=== PATIENT | male | born 1945 | race Caucasian/White ===

== ENCOUNTER 2017-01-21 23:08 | Observation (INO) | payer OTHER ==
[~2017-01-21] VITALS: Ht 172.7 cm; Wt 89.8 kg
--- NOTE | ~2017-01-21 | H ---
[facility] [place] [address] HISTORY AND PHYSICAL Name: NAHED AVALOS Room #: 205-P [facility] Lui Waller#: [id number] Admission: 01/21/17 Attend Phys: Claudio Marcial Discharge: 01/22/17 Date of : 43 Report #: [id number] THIS REPORT FOR: //name// CC: Claudio Green DATE OF SERVICE: 01/21/2017 ATTENDING PHYSICIAN: Claudio Marcial M.D. PRIMARY CARE PHYSICIAN: Kali Green M.D. CHIEF COMPLAINT: Chest pain. HISTORY OF PRESENT ILLNESS: The patient is a 71-year-old male who does have a history of mild coronary artery disease. He does not have any stents, but he has had a prior abnormal stress test in 2014, for which he underwent a heart catheterization, which showed a few 40% lesions, and it was recommended at the time to just work on risk factor modification. He had been doing well up until yesterday morning, he developed some chest pressure and burning in his mid chest. He did have some radiation of this discomfort into his neck and jaw and left shoulder. The pain has been on and off since onset. He did have some associated lightheadedness, but no shortness of breath, nausea, vomiting or diaphoresis. He was actually scheduled to have a nuclear stress test later on this week by his manager agriculture, Dr. Han. For this current pain, he ended up in the ER at [facility] in [place]. He was given nitroglycerin there once, which seemed to help the pain, and because his manager agriculture is here, he was transferred to [facility] as a direct admission. He is currently resting comfortably. He says there is a very slight pressure in the mid chest, which he would rate 1/10. He does have chronic atrial fibrillation for which he is on Pradaxa. PAST MEDICAL HISTORY: Mild coronary artery disease, chronic atrial fibrillation, hypertension, diabetes, hyperlipidemia, obstructive sleep apnea, constipation and GERD. PAST SURGICAL HISTORY: Bilateral cataract repair, rotator cuff repair, hernia repair and T and A. ALLERGIES: PENICILLIN. HOME MEDICATIONS: Pradaxa 150 mg b.i.d., amiodarone 200 mg daily, pravastatin 20 mg daily, amlodipine 5 mg daily, aspirin 81 mg daily, metformin 1000 mg b.i.d., Levemir insulin 24 units at bedtime and Humalog insulin sliding scale. SOCIAL HISTORY: The patient is . He is an ex-[place], [place] [address] HISTORY AND PHYSICAL Name: NAHED AVALOS Room #: 205-P [facility] Lui MShmuelRShmuel#: [id number] Admission: 01/21/17 Attend Phys: Claudio Marcial Discharge: 01/22/17 Date of : 43 Report #: [id number] 1985 after smoking 1 pack per day for 25 years. He drinks a few beers per week. Denies any drug use. He is a retired attorney lawyer. FAMILY HISTORY: Negative for any coronary artery disease. Both his parents at late ages from natural causes. REVIEW OF SYSTEMS: A 12-point review of systems was reviewed with the patient; otherwise, negative unless stated in the HPI. PHYSICAL EXAMINATION: GENERAL: The patient is an alert and pleasant male, in no acute distress. VITAL SIGNS: Temperature is 36.8, heart rate 59, respirations 18, blood pressure is 133/91 and oxygen 96% on room air. HEENT: PERRLA. Sclerae are nonicteric. Oral mucosa is pink and moist. NECK: Supple, no JVD noted. CARDIOVASCULAR: Normal S1 and S2. No murmurs, rubs or gallops. RESPIRATORY: Breath sounds are clear bilaterally. His breathing is nonlabored. ABDOMEN: Soft, nontender and nondistended with positive bowel sounds. VASCULAR: No edema noted. Pedal pulses are 2+. NEUROLOGIC: The patient is alert and oriented x 3. Speech is clear. He is moving all extremities equally. No focal neuro deficits noted. SKIN: Intact. No rashes or lesions. LABORATORY AND DIAGNOSTIC DATA: WBC is 8.6, hemoglobin 12.8 and platelets 315. Sodium 137, potassium 4.0, BUN 23 and creatinine 1.0. Glucose 139. Troponins negative. Lipase is 184. INR 1.6. EKG showing sinus rhythm with a first-degree block. ASSESSMENT AND PLAN: 1. Chest pain. The patient was scheduled for a nuclear stress test later this week. So for, his troponins have been negative. We will check 2 more sets of enzymes. We will consult Cardiology for further recommendations, he may need to have his stress test moved to today. 2. Hypertension. Blood pressure is stable. Resume home meds. 3. Diabetes type 2. Blood sugar is stable. Continue Levemir tonight and add sliding scale insulin. 4. Chronic atrial fibrillation. He is currently rate controlled. He is in a sinus rhythm with first-degree block. We will continue with Pradaxa for anticoagulation and amiodarone for rate control. 5. Hyperlipidemia. Check a lipid panel. Continue statin therapy. 6. Obstructive sleep apnea. The patient does not have his home CPAP, use oxygen p.r.n. 7. Deep vein thrombosis prophylaxis. Continue with Pradaxa. [facility] [address] [place] [address] HISTORY AND PHYSICAL Name: NAHED AVALOS Room #: 205-P [facility] Lui Waller#: [id number] Admission: 01/21/17 Attend Phys: Claudio Marcial Discharge: 01/22/17 Date of : 43 Report #: [id number] We will continue to follow the patient closely throughout the hospitalization and make changes based on clinical status. <ELECTRONICALLY SIGNED> By: SERGIO Salazar 01/23/17 0608 0634 0805 SERGIO Salazar /nt
--- NOTE | ~2017-01-21 | EKG ---
[address] [address] ELECTROCARDIOGRAM REPORT Name: NAHED AVALOS Room #: 205-[facility]..#: [id number] Admission: 01/21/17 Attend Phys: Claudio Marcial Discharge: Date of : 43 Report #: [id number] THIS REPORT FOR: //name// [facility] Test Date: 2017-01-22 Test Time: 01:29:03 Pat Name: NAHED AVALOS Department: Room: 205 Gender: M Armed Guard: charissa : 1945 Requested By: Karley Miramontes Order Number: [id number] MD: Barry Lkue Measurements Intervals [place] Rate: 53 P: 63 UT: 229 QRS: -27 QRSD: 117 T: 42 QT: 498 QTc: 468 Interpretive Statements Sinus rhythm Prolonged UT interval Right ventricular conduction delay No previous ECG available for comparison Electronically Signed On 01-22-2017 8:37:32 CDT by Barry Luke [email or web address] <ELECTRONICALLY SIGNED> By: Barry Luke MD, [facility] 01/22/17 0837 0129 8 Barry Luke MD, FACC /EPI
--- NOTE | ~2017-01-21 | EKG ---
[place] [address] [facility] [address] ELECTROCARDIOGRAM REPORT Name: NAHED AVALOS Room #: 205-[facility]..#: [id number] Admission: 01/21/17 Attend Phys: Claudio Marcial Discharge: Date of : 43 Report #: [id number] THIS REPORT FOR: //name// [facility] Test Date: 2017-01-22 Test Time: 06:42:33 Pat Name: NAHED AVALOS Department: Room: 205 Gender: M Registered Nurse Surgical Services: roberta : 1945 Requested By: Karley Miramontes Order Number: [id number] MD: Barry Luke Measurements Intervals [place] Rate: 51 P: -8 NH: 225 QRS: -37 QRSD: 121 T: 27 QT: 471 QTc: 434 Interpretive Statements Sinus rhythm Prolonged NH interval Nonspecific IVCD with LAD No previous ECG available for comparison Electronically Signed On 01-22-2017 8:41:22 CDT by aBrry Luke [email or web address] <ELECTRONICALLY SIGNED> By: Barry Luke MD, [facility] 01/22/17 0841 0642 1 Barry Luke MD, FACC /EPI
[~2017-01-21 23:08] MED LIST: ASPIRIN EC81 M1 PO; ASPIRIN81 M2 PO; ATENOLOL 50MG T50 MG PO; BENICAR40 MG PO; GLUCOPHAGE1000 MG PO; GLUCOPHAGE500 MG PO; LEVEMIR SUBQ; LIVALO2 MG PO; NORVASC 5 MG TAB5 MG PO; NOVOLOG100 UNIT/1 SQ; PACERONE 200 M200 M1 PO; PRADAXA150 MG PO; PRAVACHOL20 MG PO
[2017-01-21 23:57] VITALS: BP 133/91
[2017-01-22 04:00] VITALS: BP 129/66
[2017-01-22 08:10] VITALS: BP 121/78
[2017-01-22 09:33] LABS: CHOLESTEROL 112 mg/dL (<200); HDL CHOLESTEROL 53 mg/dL (>40); LDL CHOLESTEROL 42 mg/dL (<100); TC:HDL 2.1 Ratio (Not establshd); TRIGLYCERIDE 85 mg/dL (<150); VLDL 17 mg/dL (<40)
[2017-01-22 14:10] VITALS: BP 117/75
[2017-01-22 16:51] VITALS: BP 117/75
[2017-01-22 17:29] VITALS: BP 117/75
== END 2017-01-22 17:33 | disposition home or self-care (01) ==
LOC: 2N 23:08
PROVIDERS: Nurse Practitioner Acute Care
DX: I25.10 Atherosclerotic heart disease of native coronary artery without angina pectoris (principal); I48.2 Chronic atrial fibrillation; I10 Essential (primary) hypertension; E78.5 Hyperlipidemia, unspecified; G47.33 Obstructive sleep apnea (adult) (pediatric); K21.9 Gastro-esophageal reflux disease without esophagitis; K59.00 Constipation, unspecified; E11.9 Type 2 diabetes mellitus without complications; I82.499 Acute embolism and thrombosis of other specified deep vein of unspecified lower extremity; F10.21 Alcohol dependence, in remission; Z87.891 Personal history of nicotine dependence

== ENCOUNTER → 2019-01-02 | Outpatient (CLI) | payer OTHER ==
[2019-01-02 07:36] LABS: CREATININE 0.9 mg/dL (0.7-1.3)
== END ==
LOC: CAT 06:58
PROVIDERS: Internal Medicine Cardiovascular Disease
DX: K86.89 Other specified diseases of pancreas (principal); I70.0 Atherosclerosis of aorta; M47.815 Spondylosis without myelopathy or radiculopathy, thoracolumbar region

== ENCOUNTER → 2020-01-07 | Outpatient (CLI) | payer OTHER | LOC: SJCVC 13:55 → SJCVCIMAG 13:55 | DX: R94.31 Abnormal electrocardiogram [ECG] [EKG] (principal); I11.9 Hypertensive heart disease without heart failure; I34.0 Nonrheumatic mitral (valve) insufficiency; I48.0 Paroxysmal atrial fibrillation; I25.10 Atherosclerotic heart disease of native coronary artery without angina pectoris; E11.9 Type 2 diabetes mellitus without complications; E78.00 Pure hypercholesterolemia, unspecified; I63.9 Cerebral infarction, unspecified; Z95.5 Presence of coronary angioplasty implant and graft; Z79.4 Long term (current) use of insulin; Z79.899 Other long term (current) drug therapy; Z87.891 Personal history of nicotine dependence ==

== ENCOUNTER → 2020-01-29 | Outpatient (CLI) | payer OTHER | LOC: SJCVC 11:17 → SJCVCIMAG 11:17 | DX: R94.31 Abnormal electrocardiogram [ECG] [EKG] (principal); E89.0 Postprocedural hypothyroidism; E04.8 Other specified nontoxic goiter; I65.23 Occlusion and stenosis of bilateral carotid arteries; R55 Syncope and collapse; E11.9 Type 2 diabetes mellitus without complications; I48.0 Paroxysmal atrial fibrillation; I63.9 Cerebral infarction, unspecified; I63.211 Cerebral infarction due to unspecified occlusion or stenosis of right vertebral artery; I63.22 Cerebral infarction due to unspecified occlusion or stenosis of basilar artery; I25.10 Atherosclerotic heart disease of native coronary artery without angina pectoris; R09.89 Other specified symptoms and signs involving the circulatory and respiratory systems; Z79.4 Long term (current) use of insulin ==

== ENCOUNTER → 2020-04-27 | Outpatient (CLI) | payer OTHER | LOC: SJCVCIMAG 12:46 | PROVIDERS: ATTEND Internal Medicine Cardiovascular Disease | DX: I48.0 Paroxysmal atrial fibrillation (principal); R00.0 Tachycardia, unspecified; I25.10 Atherosclerotic heart disease of native coronary artery without angina pectoris; Z79.899 Other long term (current) drug therapy; Z87.891 Personal history of nicotine dependence ==

== ENCOUNTER → 2020-06-09 | Outpatient (CLI) | payer OTHER | LOC: SJCVC 13:08 | PROVIDERS: ATTEND Internal Medicine Cardiovascular Disease | DX: R94.31 Abnormal electrocardiogram [ECG] [EKG] (principal); I48.91 Unspecified atrial fibrillation; I63.9 Cerebral infarction, unspecified; I63.211 Cerebral infarction due to unspecified occlusion or stenosis of right vertebral artery; I63.22 Cerebral infarction due to unspecified occlusion or stenosis of basilar artery; I25.10 Atherosclerotic heart disease of native coronary artery without angina pectoris; R09.89 Other specified symptoms and signs involving the circulatory and respiratory systems; I49.5 Sick sinus syndrome ==

== ENCOUNTER 2020-12-28 11:18 | Inpatient (IN) | payer OTHER ==
[~2020-12-28] VITALS: Ht 172.7 cm; Wt 89.8 kg
[2020-12-28 11:28] VITALS: BP 112/67
[2020-12-28 12:01] LABS: ABSOLUTE NEUTROPHILS 7.8 thou/uL (1.4-8.2); BASOPHILS 0.6 % (0.0-2.0); EOSINOPHILS 2.6 % (0.0-3.0); HEMATOCRIT 39.9 % (42.0-52.0); HEMOGLOBIN 13.4 gm/dL (14.0-18.0); LYMPHOCYTES 13.6 % (24.0-44.0); MCH 29.8 pg (26.0-34.0); MCHC 33.5 g/dL (28.0-37.0); MONOCYTES 5.4 % (1.0-8.0); PLATELET COUNT 293 thou/uL (150-400); POLYS 77.8 % (36.0-66.0); RBC 4.48 mil/uL (4.50-6.00); RDW 14.5 % (10.5-14.5)
[2020-12-28 12:15] LABS: APTT 42.4 Seconds (24.5-32.8); INR 1.5; PROTIME 16.3 Seconds (9.3-11.4)
[2020-12-28 12:16] LABS: ANION GAP 10 mmol/L (7-16); BUN 18 mg/dL (7-18); CALCIUM 8.8 mg/dL (8.5-10.1); CHLORIDE 95 mmol/L (98-107); CO2 22 mmol/L (21-32); GLUCOSE 139 mg/dL (74-106); POTASSIUM 4.2 mmol/L (3.5-5.1); SODIUM 127 mmol/L (136-145)
[2020-12-28 12:27] LABS: ALBUMIN 4.2 g/dL (3.4-5.0); SGOT 27 U/L (15-37); SGPT 34 U/L (16-63); TOTAL BILIRUBIN 0.5 mg/dL (0.2-1.0); TROPONIN-I <0.06 ng/mL (<0.06)
[2020-12-28 13:53] VITALS: BP 122/55
[2020-12-28 14:13] VITALS: BP 116/74
[2020-12-28 15:02] LABS: FOLIC ACID 15.6 ng/mL (8.6-58.9)
[2020-12-28 15:07] VITALS: BP 108/63
--- NOTE | 2020-12-28 15:38 | EKG ---
[address] [place] [address] ELECTROCARDIOGRAM REPORT Name: ROBBIENAHED Room #: 203-P ADM IN M.R.#: [id number] Admission: 12/28/20 Attend Phys: James Rashid MD Discharge: Date of : 43 Report #: [id number] [facility] ED Test Date: 2020-12-28 Test Time: 12:03:51 Pat Name: NAHED AVALOS Department: Room: [facility] Gender: M Orthotics Technician: GALILEO : 1945 Requested By: Morgan Vidal Order Number: [id number] MD: Ronaldo Carbajal Measurements Intervals [place] Rate: 95 P: [place]: QRS: -14 QRSD: 84 T: 44 QT: 373 QTc: 469 Interpretive Statements Atrial fibrillation Compared to ECG 01/22/2017 06:42:33 Sinus rhythm no longer present First degree AV block no longer present Intraventricular conduction delay no longer present Electronically Signed On 12-28-2020 15:38:26 CDT by Ronaldo Carbajal [email or web address] <ELECTRONICALLY SIGNED> By: Ronaldo Carbajal MD, [facility] 12/28/20 1538 1203 1203 Ronaldo Carbajal MD, FACC /EPI
[2020-12-28] MEDS ORDERED: TYLENOL325 M1 PO (15:54)
[2020-12-28] MEDS ORDERED: DILTIAZEM 24HR240 M1 PO (15:55)
[2020-12-28] MEDS ORDERED: DULCOLAX STOOL100 M1 PO (15:56)
[2020-12-28] MEDS ORDERED: NOVOLOG100 UNIT/1 (15:58)
[2020-12-28] MEDS ORDERED: LEVEMIR100 UNIT/1 SUBQ (15:59)
[2020-12-28] MEDS ORDERED: PRAVACHOL40 MG PO (16:00)
[2020-12-28] MEDS ORDERED: XARELTO20 MG PO (16:01)
[2020-12-28] MEDS ORDERED: MELOXICAM15 MG PO (16:02)
[2020-12-28] MEDS ORDERED: VENLAFAXINE HCL75 M1 PO (16:02)
[2020-12-28] MEDS ORDERED: NEURONTIN300 MG PO (16:04)
[2020-12-28 16:47] LABS: CHOLESTEROL 128 mg/dL (<200); HDL CHOLESTEROL 63 mg/dL (>40); LDL CHOLESTEROL 51 mg/dL (<100); TRIGLYCERIDE 72 mg/dL (<150); VLDL 14 mg/dL (<40)
--- NOTE | 2020-12-28 16:58 | NUR ---
order in chart for stat mri/mra. rn called mri and hematology technician stated that he spoke with dr. loza and it is ok for pt to have mri/mra in am on 12/29.
[2020-12-28 17:00] LABS: SERUM ASSESSMENT Clear
--- NOTE | 2020-12-28 18:51 | NUR ---
1434- PT NEW ARRIVAL FROM ER. PT ARRIVED WITH AT BEDSIDE. PT ABLE TO ANSWER ALL ADMIT QUESTIONS. PT STATES HE HAD TIA SYMPTOMS AT HOME BUT HAS NOT HAD ANY SINCE BEING HERE. MRI/MRA IN AM. PT DENIES ANY NEW SYMPTOMS AND ALL PRIOR SYMPTOMS HAS SUBSIDED. PT AGREES TO LET STAFF KNOW IF HE BEGINS TO HAVE ANY SYMPTOMS. FALL PRECAUTIONS IN PLACE. SCD'S PLACE BILAT CALF SLEEVES.
[2020-12-28 20:00] VITALS: BP 131/75
[2020-12-28 22:49] VITALS: BP 131/75
[2020-12-29 04:45] VITALS: BP 174/77
--- NOTE | 2020-12-29 05:30 | NUR ---
assumed care at 1900, alert ad oriented, pleasant, denies needs, assessments as charted, remains afib on the monitor with rate controlled, meds given as per dec, no acute distress tonight, will continue to monitor, will pass report
[2020-12-29 05:57] LABS: ABSOLUTE NEUTROPHILS 5.6 thou/uL (1.4-8.2); EOSINOPHILS 4.8 % (0.0-3.0); HEMATOCRIT 41.4 % (42.0-52.0); HEMOGLOBIN 13.8 gm/dL (14.0-18.0); LYMPHOCYTES 18.7 % (24.0-44.0); MCHC 33.4 g/dL (28.0-37.0); MCV 89.6 fL (80.0-100.0); PLATELET COUNT 297 thou/uL (150-400); POLYS 67.5 % (36.0-66.0); RBC 4.62 mil/uL (4.50-6.00); RDW 14.6 % (10.5-14.5); WBC 8.3 thou/uL (4.0-11.0)
[2020-12-29 06:26] VITALS: BP 125/84
[2020-12-29 06:27] LABS: CALCIUM 8.9 mg/dL (8.5-10.1); CREATININE 0.9 mg/dL (0.7-1.3); MAGNESIUM 1.7 mg/dL (1.8-2.4)
[2020-12-29 08:00] VITALS: BP 115/77
--- NOTE | 2020-12-29 09:26 | NUR ---
Met with patient last evening. Patient admits with dizziness. Reports he would see an object and unable to state name of object. Patient reports independent with adls and self care. Steps to enter home and flight of steps to bedroom/bath. Patient reports rails on side for steps no difficulty. Patient uses a cane if needed for ambulation. Patient prior to CoV[facility] out paitent therapy at [facility]. Has back pain, seen in outpatient pain clinic. Therapy evals in process. casemgt following.
[2020-12-29 11:18] VITALS: BP 119/66
[2020-12-29] MEDS ORDERED: METOPROLOL SUCC25 M1 PO (11:29)
[2020-12-29 11:38] VITALS: BP 135/92
--- NOTE | 2020-12-29 11:39 | 2DMMODE ---
[facility] [place] [address] 2 D/M-MODE ECHOCARDIOGRAM Name: NAHED AVALOS Room #: 203-P ADM IN M.R.#: [id number] Admission: 12/28/20 Attend Phys: James Rashid MD Discharge: Date of : 43 Report #: [id number] THIS REPORT FOR: cc: Kali Green MD, [place] S. MD Santiago, Patrick MD [facility] ~ ADDENDUM APPROVED REPORT Study performed: 12/29/2020 10:42:59 EXAM: Comprehensive 2D, Doppler, and color-flow Echocardiogram Patient Location: Bedside Room #: 203 Status: routine BSA: 2.04 HR: 100 bpm BP: 115/77 mmHg Rhythm: Atrial Fibrillation Other Information Study Quality: Good Indications Afib, rule out TIA. Hx: PAF, CAD, HTN, HLP, DM. Echo Enhancing Agent Indication: Rule out Shunt Agent(s) / Amount(s) Used: Agitated Saline 7 cc 2D Dimensions RVDd: 27.26 mm IVSd: 10.15 (7-11mm) LVOT Diam: 21.10 (18-24mm) LVDd: 48.91 mm PWd: 10.69 (7-11mm) Ascending Ao: 36.91 (22-36mm) LVDs: 38.55 (25-40mm) Left Atrium: 46.72 (27-40mm) Aortic Root: 35.37 mm Volumes Left Atrial Volume (Systole) Single Plane 4CH: 68.81 mL Single Plane 2CH: 62.56 mL LA ESV Index: 36.00 mL/m2 [facility] [address] [place] [address] 2 D/M-MODE ECHOCARDIOGRAM Name: NAHED AVALOS Room #: 203-P [facility].#: [id number] Admission: 12/28/20 Attend Phys: James Rashid MD Discharge: Date of : 43 Report #: [id number] Aortic Valve AoV Peak Clint.: 1.07 m/s AO Peak Gr.: 4.56 mmHg LVOT Max P.23 mmHg LVOT Max V: 0.75 m/s LUBNA Vmax: 2.44 cm2 Mitral Valve MV Decel. Time: 163.72 ms MV E Max Clint.: 0.78 m/s Pulmonary Valve PV Peak Clint.: 0.58 m/s PV Peak Gr.: 1.33 mmHg Tricuspid Valve TR Peak Clint.: 2.20 m/s RAP Estimate: 5.00 mmHg TR Peak Gr.: 19.00 mmHg PA Pressure: 24.00 mmHg Left Ventricle The left ventricle is normal size. There is normal left ventricular wall thickness. Left ventricular systolic function is mildly decreased. LVEF is 45%. This study is not technically sufficient to allow evaluation of the LV diastolic function due to atrial fibrillation. Right Ventricle The right ventricle is normal size. The right ventricular systolic function is normal. Atria Left atrium is moderately dilated. No shunting noted with contrast bubble injection. Right atrium is mildly dilated. Aortic Valve The aortic valve is normal in structure. Leaflets are mildly thickened and calcified. Trace aortic regurgitation. There is no aortic valvular stenosis. Mitral Valve The mitral valve is normal in structure. Mild mitral regurgitation. Tricuspid Valve The tricuspid valve is normal in structure. Trace tricuspid regurgitation. Estimated PAP is 25mmHg. [facility] [place] [address] 2 D/M-MODE ECHOCARDIOGRAM Name: ROBBIENAHED E Room #: 203-P [facility] IN M.R.#: [id number] Admission: 12/28/20 Attend Phys: James Rashid MD Discharge: Date of : 43 Report #: [id number] Pulmonic Valve The pulmonary valve is normal in structure. There is no pulmonic valvular regurgitation. Great Vessels IVC is normal in size and collapses >50% with inspiration. Pericardium There is no pericardial effusion. <Conclusion> Study performed in atrial fibrillation Normal left ventricular size/wall thickness Mild global hypokinesis ejection fraction 45% Normal right ventricular size Color-flow Doppler study was performed of the aortic/mitral/tricuspid/pulmonary valve Moderately dilated left atrium Mildly dilated the right atrium Aortic valve mildly calcified, no stenosis Mild/central mitral valve insufficiency Trace tricuspid valve insufficiency Pulmonary systolic pressure estimated 25 mmHg Normal aortic root size Normal IVC size and response to respiration No pericardial effusion <ELECTRONICALLY SIGNED> By: Ronaldo Carbajal MD, FACC 12/29/20 1139 38 38 Ronaldo Carbajal MD, FACC /INF
--- NOTE | 2020-12-29 12:19 | NUR ---
RECEIVED PT'S CARE AROUND 0720; PT. ALERT; DURING AM ASSESSMENT PT. AOX4; NO C/O PAIN; AM MEDICTIONS GIVEN; MRI SCREANING PERFORMED; GONE FOR MRI EARLY ON THE MORNING; EDUCATED ABOUT FALL PRECAUTIONS; ST. UNDERSTANDING; WORKED WITH PT;NOTICED ELEVATED HR UP TO 150s: ANGI SNELL NOTIFIED; ORDERS ON PLACED; PT. REFUSED METOPROLOL; ST. MEDICATION CAUSE HIM TO NOT ABLE TO DO ANYTHING; ST. SUNDAY TOOK HALF OF MEDICATION AND DROPPED HIS HR TO 41s; DESTINY SNELL NOTIFIED; ST. UNDERSTANDING; NO NEW ORDERS; OK TO BE D/C; D/C ORDERS ON PLACED; PT. NOTIFIED; WILL WORK ON D/C PAPERS;
[2020-12-29 12:34] VITALS: BP 135/92
--- NOTE | 2021-01-02 10:49 | HC ---
[facility] [place] [address] CONSULTATION Name: NAHED AVALOS Room #: 203-P [facility] IN M.R.#: [id number] Admission: 12/28/20 Attend Phys: James Rashid MD Discharge: 12/29/20 Date of : 43 Report #: [id number] THIS REPORT FOR: cc: Kali Green MD, [place] S. MD Khosla, Parveen K. MD ~ DATE OF SERVICE: 12/28/2020 HISTORY OF PRESENT ILLNESS: This is a 75-year-old male patient who was seen by me in the Emergency Room with somewhat of an unusual symptoms. He has atrial fibrillation. He is anticoagulated. He said he had some dizziness yesterday and subsequently he had some dizziness this morning, which became worse. As I understood from the Emergency Room doctors, he was able to do everything, but we just did not think he can read properly. Symptoms became better after some time by itself and by the time I saw him, I did not see any marked problem with him. REVIEW OF SYSTEMS: Indicate that this patient had question of aphasia. As I understand, the symptoms were mild. He had dizziness. Dizziness was improving. I talked to Emergency Room physician and subsequently came and saw him. He had a CT angiogram in the Emergency Room and it was completely unremarkable. A 14-point review of system is mostly positive for cardiac problems. He said he was admitted to [facility] and he had a mild bleed there. It was in the back portion of the head. I do not have any of those records here. Rest of the 14-point review of system was mostly noncontributory. PAST MEDICAL HISTORY: Positive for atrial fibrillation. FAMILY HISTORY: Unremarkable. SOCIAL HISTORY: He is and his was there. She provided some history. PHYSICAL EXAMINATION: Indicate he is alert. He is responsive. He was able to follow simple command. His speech looks intact, but he says that he just does not feel right when he reads. His cranial nerve examination and neuromuscular examinations appear unremarkable. I have not mentioned he is a diabetic, but he was not hypoglycemic as I understand. His vital signs indicated a blood pressure of 131/75, temperature of 98.4, respiration is 18. LABORATORY DATA: His white count was normal and his sodium was a trace low at 127. His GFR was 73. TSH was normal. IMPRESSION AND PLAN: It is not certain that the patient's symptoms were transient ischemic attack, but that needs to be excluded. I recommended an MRI of the brain, which I ordered. If he does have a history of bleed in the past, [address] [address] CONSULTATION Name: NAHED AVALOS Reid Room #: 203-P [facility] IN M.R.#: [id number] Admission: 12/28/20 Attend Phys: James Rashid MD Discharge: 12/29/20 Date of : 43 Report #: [id number] I would like to look at an MRI, especially because posterior fossa is not very well visualized on CT scan. Furthermore if he has another stroke, then he may need more than just anticoagulation, so I think MRI needs to be done in this patient, which was ordered. He does have some hyponatremia that may have contributed to his symptom, although it is not very prominent. He does have some thyroid nodule and I will defer further evaluation and management to yourself. We will await his MRI and that is the only other neurological workup I will recommend. If that is normal, I do not think any further neurological workup needs to be done. I have asked for records from [facility] and if those records become available, we will see what kind of bleed he has in the past and we will leave any further recommendation. Otherwise, he can follow up with those neurologists he saw at that time. I spent more than 50 minutes of time taking care of this patient today and majority was spent counseling and coordinating. <ELECTRONICALLY SIGNED> By: Erlin Escobar MD 01/02/21 1049 20 35 Erlin Escobar MD /nt
== END 2020-12-29 13:27 | disposition home or self-care (01) | DRG 69 ==
LOC: ER 11:18 → 2N 14:01 → EROBS 14:01 → 2N 14:49
PROVIDERS: Emergency Medicine; Internal Medicine; Nurse Practitioner; ADMIT Internal Medicine; ATTEND Internal Medicine
DX: G45.9 Transient cerebral ischemic attack, unspecified (principal); G93.41 Metabolic encephalopathy; I48.20 Chronic atrial fibrillation, unspecified; E87.1 Hypo-osmolality and hyponatremia; D68.59 Other primary thrombophilia; R47.01 Aphasia; K75.9 Inflammatory liver disease, unspecified; I25.10 Atherosclerotic heart disease of native coronary artery without angina pectoris; E78.5 Hyperlipidemia, unspecified; E04.2 Nontoxic multinodular goiter; E11.9 Type 2 diabetes mellitus without complications; I48.0 Paroxysmal atrial fibrillation; I10 Essential (primary) hypertension; E78.00 Pure hypercholesterolemia, unspecified; Z79.4 Long term (current) use of insulin; Z79.82 Long term (current) use of aspirin; Z79.01 Long term (current) use of anticoagulants; Z79.899 Other long term (current) drug therapy; Z88.0 Allergy status to penicillin; Z86.73 Personal history of transient ischemic attack (TIA), and cerebral infarction without residual deficits; Z87.891 Personal history of nicotine dependence; Z72.89 Other problems related to lifestyle
CPT/HCPCS: 10081

== ENCOUNTER → 2021-08-11 | Outpatient (CLI) | payer OTHER ==
[~2021-08-11] MED LIST changes: +DILTIAZEM 24HR240 M1 PO; +DULCOLAX STOOL100 M1 PO; +LEVEMIR100 UNIT/1 SUBQ; +MELOXICAM15 MG PO; +METOPROLOL SUCC25 M1 PO; +NEURONTIN300 MG PO; +NOVOLOG100 UNIT/1; +PRAVACHOL40 MG PO; +TYLENOL325 M1 PO; +VENLAFAXINE HCL75 M1 PO; +XARELTO20 MG PO
== END ==
LOC: SJCVC 09:40
PROVIDERS: ATTEND Internal Medicine Cardiovascular Disease
DX: R94.31 Abnormal electrocardiogram [ECG] [EKG] (principal); I48.91 Unspecified atrial fibrillation; I25.10 Atherosclerotic heart disease of native coronary artery without angina pectoris; I10 Essential (primary) hypertension; E78.00 Pure hypercholesterolemia, unspecified; D68.59 Other primary thrombophilia; E11.9 Type 2 diabetes mellitus without complications; Z79.4 Long term (current) use of insulin; E11.40 Type 2 diabetes mellitus with diabetic neuropathy, unspecified; Z79.899 Other long term (current) drug therapy; Z87.891 Personal history of nicotine dependence; Z82.49 Family history of ischemic heart disease and other diseases of the circulatory system; Z88.0 Allergy status to penicillin

== ENCOUNTER 2021-10-28 21:49 | Emergency (ER) | payer OTHER ==
[~2021-10-28] VITALS: Ht 172.7 cm; Wt 90.7 kg
[2021-10-28 22:12] LABS: ABSOLUTE NEUTROPHILS 5.1 thou/uL (1.4-8.2); BASOPHILS 0.9 % (0.0-2.0); EOSINOPHILS 4.8 % (0.0-3.0); HEMATOCRIT 34.6 % (42.0-52.0); HEMOGLOBIN 11.9 gm/dL (14.0-18.0); LYMPHOCYTES 25.7 % (24.0-44.0); MCH 31.9 pg (26.0-34.0); MCHC 34.4 g/dL (28.0-37.0); MCV 92.6 fL (80.0-100.0); MONOCYTES 11.3 % (1.0-8.0); PLATELET COUNT 278 thou/uL (150-400); POLYS 57.3 % (36.0-66.0); RBC 3.73 mil/uL (4.50-6.00); RDW 13.4 % (10.5-14.5); WBC 8.8 thou/uL (4.0-11.0)
[2021-10-28 22:17] LABS: CALCIUM 8.6 mg/dL (8.5-10.1); POTASSIUM 4.8 mmol/L (3.5-5.1)
[2021-10-28 22:26] LABS: ALBUMIN 3.6 g/dL (3.4-5.0); TOTAL BILIRUBIN 0.5 mg/dL (0.2-1.0); TOTAL PROTEIN 6.7 g/dL (6.4-8.2)
[2021-10-28] MEDS ORDERED: METOPROLOL SUC100 MG PO (22:26)
[2021-10-28] MEDS ORDERED: ROSUVASTATIN CA20 MG PO (22:27)
[2021-10-28] MEDS ORDERED: VITAMIN B-2100 MG PO (22:27)
[2021-10-29 01:30] VITALS: BP 120/58
--- NOTE | 2021-10-30 10:29 | EKG ---
[address] [place] [address] ELECTROCARDIOGRAM REPORT Name: NAHED AVALOS Reid [id number] Admission: 10/28/21 Attend Phys: Discharge: 10/29/21 Date of : 43 Report #: [id number] [facility] ED Test Date: 2021-10-28 Test Time: 21:57:00 Pat Name: NAHED AVALOS Department: Room: Gender: M Diving Instructor: CHUCKY : 1945 Requested By: Rj Lujan Order Number: [id number] MD: Ronaldo Carbajal Measurements Intervals [place] Rate: 76 P: IN: QRS: -14 QRSD: 85 T: 32 QT: 422 QTc: 475 Interpretive Statements Atrial fibrillation Low voltage, extremity and precordial leads RSR' in V1 or V2, right VCD or RVH Compared to ECG 12/28/2020 12:03:51 Low QRS voltage now present Right ventricular hypertrophy now present RSR' in V1 or V2 now present Electronically Signed On 10-30-2021 10:28:48 VP [employer]ODUCTION by Ronaldo Carbajal [email or web address] <ELECTRONICALLY SIGNED> By: Ronaldo Carbajal MD, FACC 10/30/21 1028 2157 2157 Ronaldo Carbajal MD, [facility] /EPI
== END 2021-10-29 01:45 | disposition home or self-care (01) ==
LOC: ER 21:49
PROVIDERS: Emergency Medicine
DX: R06.02 Shortness of breath (principal); Z20.822 Contact with and (suspected) exposure to COVID-19; I10 Essential (primary) hypertension; E11.9 Type 2 diabetes mellitus without complications; I48.91 Unspecified atrial fibrillation; E78.5 Hyperlipidemia, unspecified; Z98.890 Other specified postprocedural states; Z79.1 Long term (current) use of non-steroidal anti-inflammatories (NSAID); Z79.4 Long term (current) use of insulin; Z88.0 Allergy status to penicillin